=== PATIENT | female | born 1960 | race Caucasian/White ===

== ENCOUNTER 2016-07-18 20:26 | Emergency (ER) | payer OTHER ==
[~2016-07-18] VITALS: Ht 162.6 cm; Wt 56.0 kg
[2016-07-18] MEDS ORDERED: METO50 PO (20:32)
[2016-07-18 22:14] VITALS: BP 124/82
== END 2016-07-18 22:22 | disposition home or self-care (01) ==
LOC: EMS 20:28
DX: S90.30XA Contusion of unspecified foot, initial encounter (principal); F17.210 Nicotine dependence, cigarettes, uncomplicated; K21.9 Gastro-esophageal reflux disease without esophagitis; I10 Essential (primary) hypertension; W20.8XXA Other cause of strike by thrown, projected or falling object, initial encounter; Y93.89 Activity, other specified; Y92.9 Unspecified place or not applicable; Y99.9 Unspecified external cause status
CPT/HCPCS: 29515; 99284